=== PATIENT | female | born 1975 | race Caucasian/White ===

== ENCOUNTER 2021-04-13 13:03 | Emergency (ER) | payer BC ==
[~2021-04-13 13:03] MED LIST: ABILIFY 5 MG TAB5 MG GT; K-DUR TAB 20 M20 MEQ GT; LODINE CAP 300300 MG PO; NEURONTIN 300300 MG GT; NORCO 7.5-3251 EACH GT; NORFLEX 100 MG100 MG PO; PHENERGAN 12.12.5 M1 GT; ROPINIROLE HCL1 MG GT; VALIUM 2 MG TAB2 MG GT; VITAMIN D250000 UNIT GT; ZANAFLEX4 MG PO
[2021-04-13 15:18] LABS: HEMOGLOBIN 9.5 gm/dl (12.3-15.3); RED BLOOD COUNT 3.38 M/UL (4.00-5.10); WHITE BLOOD COUNT 6.7 K/UL (4.5-11.0)
[2021-04-13 15:57] LABS: BUN/CREATININE RATIO 25 (0-10)
[2021-04-13] MEDS ORDERED: MACROBID 100 M100 MG PO (17:37)
== END 2021-04-13 18:06 | disposition home or self-care (01) ==
LOC: ER1 13:03
PROVIDERS: Physician Assistant
DX: C71.9 Malignant neoplasm of brain, unspecified (principal); N39.0 Urinary tract infection, site not specified; R93.0 Abnormal findings on diagnostic imaging of skull and head, not elsewhere classified; Z20.822 Contact with and (suspected) exposure to COVID-19
CPT/HCPCS: 70450; 71045; 80053; 81001; 83605; 85025; 87040; 87086; 96374; 96375; 99283; J1885; J2405; J7030; U0002

== ENCOUNTER 2021-06-11 19:23 | Emergency (ER) | payer BC ==
[~2021-06-11 19:23] MED LIST changes: +MACROBID 100 M100 MG PO
[2021-06-11 20:18] LABS: HEMOGLOBIN 10.6 gm/dl (12.3-15.3); RED BLOOD COUNT 3.85 M/UL (4.00-5.10); WHITE BLOOD COUNT 11.3 K/UL (4.5-11.0)
[2021-06-11 20:54] LABS: BUN/CREATININE RATIO 28 (0-10)
== END 2021-06-11 23:30 | disposition short-term general hospital (02) ==
LOC: ER1 19:23
PROVIDERS: Nurse Practitioner
DX: R50.82 Postprocedural fever (principal); F17.200 Nicotine dependence, unspecified, uncomplicated; R41.82 Altered mental status, unspecified; R07.9 Chest pain, unspecified; Z20.822 Contact with and (suspected) exposure to COVID-19; R06.02 Shortness of breath; Z85.841 Personal history of malignant neoplasm of brain
CPT/HCPCS: 70450; 71045; 80053; 82550; 82553; 83605; 83874; 84484; 85025; 85610; 87040; 93005; 96374; 96375; 99285; J2185; J2270; J2405; J3370; J7030; U0002

== ENCOUNTER 2021-07-01 19:20 | Emergency (ER) | payer BC ==
[2021-07-01 20:23] LABS: HEMOGLOBIN 11.9 gm/dl (12.3-15.3); RED BLOOD COUNT 4.32 M/UL (4.00-5.10); WHITE BLOOD COUNT 9.3 K/UL (4.5-11.0)
[2021-07-01 20:42] LABS: BUN/CREATININE RATIO 18 (0-10)
[2021-07-01] MEDS ORDERED: OMNICEF 300 MG300 MG PO (22:02)
[2021-07-01] MEDS ORDERED: DOXYCYCLINE HY100 MG PO (22:02)
== END 2021-07-01 22:50 | disposition home or self-care (01) ==
LOC: ER1 19:20
PROVIDERS: Emergency Medicine
DX: J18.9 Pneumonia, unspecified organism (principal); Z20.822 Contact with and (suspected) exposure to COVID-19; Z88.0 Allergy status to penicillin; Z88.1 Allergy status to other antibiotic agents; Z88.2 Allergy status to sulfonamides
CPT/HCPCS: 70450; 71045; 80053; 81001; 82140; 82550; 82553; 83605; 83690; 83735; 83874; 84100; 84439; 84443; 84484; 85025; 85610; 85730; 87040; 87086; 93005; 96374; 99285; J0696; Q9967; U0002

== ENCOUNTER 2021-07-03 18:21 | Inpatient (IN) | payer BC ==
[~2021-07-03] VITALS: Ht 172.7 cm; Wt 66.2 kg
[~2021-07-03 18:21] MED LIST changes: +DOXYCYCLINE HY100 MG PO; +OMNICEF 300 MG300 MG PO
[2021-07-03 19:22] LABS: HEMOGLOBIN 11.8 gm/dl (12.3-15.3); RED BLOOD COUNT 4.3 M/UL (4.00-5.10); WHITE BLOOD COUNT 9.7 K/UL (4.5-11.0)
[2021-07-03 19:37] LABS: BUN/CREATININE RATIO 17 (0-10)
[2021-07-04] MEDS ORDERED: ZOLOFT100 MG PO (02:45)
[2021-07-04] MEDS ORDERED: SENNA LAX8.6 MG PO (02:45)
[2021-07-04] MEDS ORDERED: PROMETHAZINE HC25 MG PR (02:46)
[2021-07-04] MEDS ORDERED: PHENERGAN 25 MG25 M1 PO (02:46)
[2021-07-04] MEDS ORDERED: TRANSDERM-SCOP1 EACH TOP (02:46)
[2021-07-04] MEDS ORDERED: LEVSIN TAB 00.125 MG SL (02:47)
[2021-07-04] MEDS ORDERED: OXYGEN INH (02:47)
[2021-07-04] MEDS ORDERED: KEPPRA1000 MG PO (02:48)
[2021-07-04] MEDS ORDERED: FENTANYL1 EAC4 TD (02:49)
[2021-07-04] MEDS ORDERED: HYDROCODON-ACE1 EAC6 PO (02:49)
[2021-07-04] MEDS ORDERED: GABAPENTIN800 MG PO (02:49)
[2021-07-04] MEDS ORDERED: DILAUDID1 MG/1 ML PO (02:50)
[2021-07-04] MEDS ORDERED: BISACODYL10 MG PR (02:50)
[2021-07-04] MEDS ORDERED: FEVERALL650 MG PR (02:51)
--- NOTE | 2021-07-04 07:17 | NUR ---
0550 YAMIL THE TECH STATES PT HAS PULLED IV OUT, PULLED ON FEEDING TUBE, PULLED TELLEY AND PULSE OX, EXTERNAL AND DIAPER IS OFF. 2 RNS AND TECH REPOSITON THE PT IN THE BED AND CLEAN UP THE PT AND THE BED. PT IS VERY AGGITATED. CALLED MD GAUTHIER AND NOTIFIED HIM OF ABOVE, STATES TO GO AHEAD AND GIVE VALIUM. WENT TO PT BEDSIDE, PT IS NOT ABLE TO TAKE PO MEDICATIONS, PER DAUGHTER ALSO PT WILL NOT TAKE MEDICATIONS PO. RN CALLED ABRAHAN BACK AND STATES ABOVE, RECEIVED ORDERS FOR HALDOL 3MG IM ONCE, ORDER FOR ABD XRAY STAT. ADMIN HALDOL, XRAY WAS DONE. CALLED TO HAVE SITTER WITH PT UNTIL PT CALMS DOWN. DAUGHTER IS AT BEDSIDE. PT AT THIS TIME HAS NO IV ACCESS, ONCOMING DAY SHIFT NURSE IS MAY AWARE OF ABOVE.
--- NOTE | 2021-07-05 05:25 | NUR ---
07/05/2021 @ 04:55 - Upon doing rounding, this RN and the tech found the patient to be in the floor at the foot of the bed, with the bed alarm sounding, and the bed unlocked. VS- 127/81, 112 pulse, 93%, 21 respirations. Upon assessment pt is found to have a new bruise to the right knee, and a small knot on the right forehead. Pt is complaining of headache, and right quadrant abd pain. Staff assist button is initiated to get help with transferring patient back to bed. MD Mccall is made aware, obtained order for CT of head without contrast, and to monitor abd closely. Daughter at bedside, is aware. supervisor electric motor testing Juma is made aware, at bedside. 1:1 sitter obtained for patient. 07/05/2021 @ 05:15 - Patient returns from CT, new set of yellow gear is applied to patient, sitter at bedside. Will monitor abd.
[2021-07-05 06:45] LABS: HEMOGLOBIN 10.5 gm/dl (12.3-15.3); RED BLOOD COUNT 4.02 M/UL (4.00-5.10)
[2021-07-05 06:49] LABS: WHITE BLOOD COUNT 4.9 K/UL (4.5-11.0)
[2021-07-05 07:23] LABS: BUN/CREATININE RATIO 14 (0-10)
[2021-07-05] MEDS ORDERED: CLEOCIN SU75 MG/5 ML GT (10:59)
[2021-07-05] MEDS ORDERED: PROAIR DIGIHAL90 MCG INH (11:05)
--- NOTE | 2021-07-05 14:12 | NUR ---
CALLED REPORT TO BERNIE ROBERTSPAYROLL ACCOUNTING SPECIALIST RN
== END 2021-07-05 14:35 | DRG 177 ==
LOC: ER1 18:21 → CDU 23:15 → M/S 23:15
PROVIDERS: Internal Medicine; Physician Assistant Medical; ADMIT Internal Medicine
DX: J69.0 Pneumonitis due to inhalation of food and vomit (principal); G93.41 Metabolic encephalopathy; Z20.822 Contact with and (suspected) exposure to COVID-19; J96.01 Acute respiratory failure with hypoxia; G92.8 Other toxic encephalopathy; C71.9 Malignant neoplasm of brain, unspecified; N13.6 Pyonephrosis; W18.30XA Fall on same level, unspecified, initial encounter; M79.7 Fibromyalgia; K59.00 Constipation, unspecified; H54.8 Legal blindness, as defined in USA; L27.0 Generalized skin eruption due to drugs and medicaments taken internally; Z93.1 Gastrostomy status; Z51.5 Encounter for palliative care; Z88.0 Allergy status to penicillin; Z87.01 Personal history of pneumonia (recurrent); Z83.3 Family history of diabetes mellitus; Z88.2 Allergy status to sulfonamides; Z88.8 Allergy status to other drugs, medicaments and biological substances; Z90.49 Acquired absence of other specified parts of digestive tract; Z98.51 Tubal ligation status; Z98.2 Presence of cerebrospinal fluid drainage device
CPT/HCPCS: 70450; 71045; 74018; 80053; 80202; 81001; 83605; 83735; 83880; 84439; 84443; 85025; 87040; 87086; 93005; 96374; 99285; J0696; J1630; J1650; J2543; J3370; J7030; J7050; J7070; Q9967; U0002

== ENCOUNTER 2021-07-11 08:37 | Inpatient (IN) | payer BC ==
[~2021-07-11] VITALS: Ht 175.3 cm; Wt 64.9 kg
[~2021-07-11 08:37] MED LIST changes: +BISACODYL10 MG PR; +CLEOCIN SU75 MG/5 ML GT; +DILAUDID1 MG/1 ML PO; +FENTANYL1 EAC4 TD; +FEVERALL650 MG PR; +HYDROCODON-ACE1 EAC6 PO; +LEVSIN TAB 00.125 MG SL; +OXYGEN INH; +PHENERGAN 25 MG25 M1 PO; +PROAIR DIGIHAL90 MCG INH; +PROMETHAZINE HC25 MG PR; -ROPINIROLE HCL1 MG GT; +SENNA LAX8.6 MG PO; +TRANSDERM-SCOP1 EACH TOP
[2021-07-11 11:02] LABS: HEMOGLOBIN 11.3 gm/dl (12.3-15.3); RED BLOOD COUNT 4.2 M/UL (4.00-5.10); WHITE BLOOD COUNT 9.1 K/UL (4.5-11.0)
[2021-07-11 11:45] LABS: BORDETELLA PARAPERTUSSIS Not Detected (Not Detectd); BORDETELLA PERTUSSIS Not Detected (Not Detectd); CHLAMYDIA PNEUMONIAE Not Detected (Not Detectd); CORONAVIRUS HKU1 Not Detected (Not Detectd); CORONAVIRUS NL63 Not Detected (Not Detectd); CORONAVIRUS OC43 Not Detected (Not Detectd); CORONOAVIRUS 229E Not Detected (Not Detectd); HUMAN METAPNEUMOVIRUS Not Detected (Not Detectd); HUMAN RHINOVIRUS/ENTEROVIRUS Not Detected (Not Detectd); INFLUENZA A Not Detected (Not Detectd); INFLUENZA B Not Detected (Not Detectd); MYCOPLASMA PNEUMONIAE Not Detected (Not Detectd); PARAINFLUENZA VIRUS 1 Not Detected (Not Detectd); PARAINFLUENZA VIRUS 2 Not Detected (Not Detectd); PARAINFLUENZA VIRUS 3 Not Detected (Not Detectd); PARAINFLUENZA VIRUS 4 Not Detected (Not Detectd); RESPIRATORY SYNCYTIAL VIRUS Not Detected (Not Detectd)
[2021-07-11 13:42] LABS: SARS-CoV-2 NOT DETECTED (Not Detectd)
[2021-07-12 09:31] LABS: HEMOGLOBIN 9.8 gm/dl (12.3-15.3); RED BLOOD COUNT 3.69 M/UL (4.00-5.10); WHITE BLOOD COUNT 3.7 K/UL (4.5-11.0)
[2021-07-12 09:59] LABS: BUN/CREATININE RATIO 17 (0-10)
[2021-07-13 07:38] LABS: HEMOGLOBIN 8.4 gm/dl (12.3-15.3); WHITE BLOOD COUNT 3.3 K/UL (4.5-11.0)
[2021-07-13 07:40] LABS: RED BLOOD COUNT 3.18 M/UL (4.00-5.10)
[2021-07-13 08:13] LABS: BUN/CREATININE RATIO 10 (0-10)
[2021-07-14] MEDS ORDERED: ZOLOFT100 MG PO (02:45)
[2021-07-14] MEDS ORDERED: KEPPRA1000 MG PO (02:48)
[2021-07-14] MEDS ORDERED: GABAPENTIN800 MG PO (02:49)
[2021-07-14 11:26] LABS: HEMOGLOBIN 8.7 gm/dl (12.3-15.3); RED BLOOD COUNT 3.3 M/UL (4.00-5.10)
[2021-07-14 11:30] LABS: WHITE BLOOD COUNT 4.9 K/UL (4.5-11.0)
[2021-07-14 11:36] LABS: BUN/CREATININE RATIO 10 (0-10)
[2021-07-14 15:02] LABS: RBC (AUTOMATED) 1600 10^6 (0); WBC (AUTOMATED 31 10^3 (0-5)
[2021-07-14 15:20] LABS: GLUCOSE,CSF 51 mg/dL (50-80); TOTAL PROTEIN,CSF 168 mg/dL (20-45)
[2021-07-14] MEDS ORDERED: FENTANYL1 EAC3 TD (15:30)
[2021-07-14] MEDS ORDERED: ABILIFY5 MG PO (15:39)
[2021-07-14] MEDS ORDERED: TIZANIDINE HCL4 MG PO (15:41)
[2021-07-14] MEDS ORDERED: ROPINIROLE HCL1 MG GT (23:49)
[2021-07-15 05:23] LABS: BUN/CREATININE RATIO 8 (0-10)
[2021-07-15 05:36] LABS: HEMOGLOBIN 8.9 gm/dl (12.3-15.3); RED BLOOD COUNT 3.42 M/UL (4.00-5.10); WHITE BLOOD COUNT 4.2 K/UL (4.5-11.0)
[2021-07-15 12:01] LABS: CRYPTOCOCCUS NEOFORMANS/GATTII Not Detected (Negative); CYTOMEGALOVIRUS Not Detected (Negative); ENTEROVIRUS Not Detected (Negative); ESCHERICHIA COLI K1 Not Detected (Negative); HAEMOPHILUS INFLUENZAE Not Detected (Negative); HERPES SIMPLEX VIRUS 1 Not Detected (Negative); HERPES SIMPLEX VIRUS 2 Not Detected (Negative); HUMAN HERPESVIRUS 6 Not Detected (Negative); HUMAN PARECHOVIRUS Not Detected (Negative); LISTERIA MONOCYTOGENES Not Detected (Negative); NEISERRIA MENINGITIDIS Not Detected (Negative); STREPTOCOCCUS AGALACTIAE Not Detected (Negative); STREPTOCOCCUS PNEUMONIAE Not Detected (Negative); VARICELLA ZOSTER VIRUS Not Detected (Negative)
[2021-07-16 08:30] LABS: HEMOGLOBIN 9.6 gm/dl (12.3-15.3); RED BLOOD COUNT 3.63 M/UL (4.00-5.10)
[2021-07-16 08:50] LABS: BUN/CREATININE RATIO 10 (0-10)
[2021-07-16] MEDS ORDERED: PHENERGAN 25 MG25 M1 PO (08:55)
[2021-07-17 04:33] LABS: HEMOGLOBIN 9.2 gm/dl (12.3-15.3); RED BLOOD COUNT 3.49 M/UL (4.00-5.10)
[2021-07-17 05:19] LABS: BUN/CREATININE RATIO 16 (0-10)
--- NOTE | 2021-07-17 10:15 | NUR ---
FENTANYL PATCH 100 MG WAS WASTED AFTER MED DC'D ON 07/17/21 AT 1015 AM BY DEMETRIO DRAPER RN AND TRACY LOYOLA RN.
[2021-07-18 03:52] LABS: HEMOGLOBIN 10.3 gm/dl (12.3-15.3); WHITE BLOOD COUNT 5.8 K/UL (4.5-11.0)
[2021-07-18 04:03] LABS: RED BLOOD COUNT 3.9 M/UL (4.00-5.10)
[2021-07-18 04:33] LABS: BUN/CREATININE RATIO 21 (0-10)
[2021-07-19 06:14] LABS: HEMOGLOBIN 10.3 gm/dl (12.3-15.3); RED BLOOD COUNT 3.89 M/UL (4.00-5.10)
[2021-07-19 06:32] LABS: BUN/CREATININE RATIO 18 (0-10)
[2021-07-20 07:08] LABS: HEMOGLOBIN 10.4 gm/dl (12.3-15.3); RED BLOOD COUNT 3.94 M/UL (4.00-5.10); WHITE BLOOD COUNT 7.8 K/UL (4.5-11.0)
[2021-07-20 07:31] LABS: BUN/CREATININE RATIO 18 (0-10)
[2021-07-20] MEDS ORDERED: ZOFRAN4 MG PO (12:23)
[2021-07-20] MEDS ORDERED: QUETIAPINE FUMA25 MG PO (12:23)
[2021-07-20] MEDS ORDERED: PROTONIX40 MG PO (12:26)
[2021-07-20] MEDS ORDERED: DOXYCYCLINE HY100 MG PO (12:26)
== END 2021-07-20 15:20 | DRG 871 ==
LOC: ER1 08:37 → CCU 11:36 → CDU 11:36 → CCU 17:53 → PROG CARE 07-16 18:46 → MED SURG 4 07-18 13:21
PROVIDERS: Emergency Medicine; Internal Medicine; Internal Medicine Pulmonary Disease; ADMIT Internal Medicine
PROC: 5A09457 Assistance with Respiratory Ventilation, 24-96 Consecutive Hours, Continuous Positive Airway Pressure (ICD-10-PCS; principal; 2021-07-11)
PROC: 0DH63UZ Insertion of Feeding Device into Stomach, Percutaneous Approach (ICD-10-PCS; 2021-07-11)
PROC: 3E0G76Z Introduction of Nutritional Substance into Upper GI, Via Natural or Artificial Opening (ICD-10-PCS; 2021-07-11)
DX: A41.9 Sepsis, unspecified organism (principal); J18.9 Pneumonia, unspecified organism; R65.21 Severe sepsis with septic shock; Z20.822 Contact with and (suspected) exposure to COVID-19; J96.21 Acute and chronic respiratory failure with hypoxia; J69.0 Pneumonitis due to inhalation of food and vomit; J96.22 Acute and chronic respiratory failure with hypercapnia; G92.8 Other toxic encephalopathy; E87.0 Hyperosmolality and hypernatremia; A87.9 Viral meningitis, unspecified; R74.01 Elevation of levels of liver transaminase levels; G40.909 Epilepsy, unspecified, not intractable, without status epilepticus; E87.5 Hyperkalemia; R53.81 Other malaise; R13.10 Dysphagia, unspecified; Z93.1 Gastrostomy status; D63.8 Anemia in other chronic diseases classified elsewhere; Z98.51 Tubal ligation status; Z88.0 Allergy status to penicillin; Z88.8 Allergy status to other drugs, medicaments and biological substances; Z88.5 Allergy status to narcotic agent; Z80.1 Family history of malignant neoplasm of trachea, bronchus and lung; Z85.89 Personal history of malignant neoplasm of other organs and systems; Z74.01 Bed confinement status; Z98.2 Presence of cerebrospinal fluid drainage device
CPT/HCPCS: 36415; 36600; 70450; 71045; 80048; 80053; 80202; 81001; 82140; 82550; 82553; 82803; 82945; 83540; 83550; 83605; 83735; 83874; 84100; 84157; 84484; 85025; 85610; 85652; 86140; 87040; 87252; 87483; 87633; 89051; 93005; 94660; 94760; 99285; C9113; J0133; J1200; J1650; J2060; J2185; J2310; J2405; J2765; J3370; J7030; J7070

== ENCOUNTER 2021-09-21 12:04 | Inpatient (IN) | payer BC ==
[~2021-09-21] VITALS: Ht 172.7 cm; Wt 101.0 kg
[~2021-09-21 12:04] MED LIST changes: +ABILIFY5 MG PO; +FENTANYL1 EAC3 TD; +GABAPENTIN400 MG PO; +KEPPRA1000 MG PO; +PROTONIX40 MG PO; +QUETIAPINE FUMA25 MG PO; +ROPINIROLE HCL1 MG PO; +TIZANIDINE HCL4 MG PO; +ZOFRAN4 MG PO; +ZOLOFT100 MG PO
[2021-09-21 13:21] LABS: RED BLOOD COUNT 3.53 M/UL (4.00-5.10); WHITE BLOOD COUNT 7.7 K/UL (4.5-11.0)
[2021-09-21 13:50] LABS: BUN/CREATININE RATIO 15 (0-10)
[2021-09-21] MEDS ORDERED: DIAZEPAM5 MG PO (16:38)
[2021-09-21] MEDS ORDERED: FENTANYL1 EAC3 TD (16:39)
[2021-09-21] MEDS ORDERED: AMITRIPTYLINE H50 MG PO (16:45)
[2021-09-21] MEDS ORDERED: DEXAMETHASONE2 MG PO (17:39)
[2021-09-21] MEDS ORDERED: CIPRO250 MG PO (17:39)
[2021-09-21] MEDS ORDERED: COMPAZINE 10MG10 MG PO (17:40)
[2021-09-21] MEDS ORDERED: PHENERGAN 25 MG25 M1 PO (17:40)
[2021-09-22 04:16] LABS: HEMOGLOBIN 8.6 gm/dl (12.3-15.3); RED BLOOD COUNT 3.44 M/UL (4.00-5.10); WHITE BLOOD COUNT 7.5 K/UL (4.5-11.0)
[2021-09-22 04:36] LABS: BUN/CREATININE RATIO 18 (0-10)
[2021-09-22] MEDS ORDERED: HYDROCODON-ACE1 EAC6 PO (16:43)
[2021-09-22] MEDS ORDERED: DRAMAMINE LESS25 MG PO (17:38)
[2021-09-23 04:34] LABS: HEMOGLOBIN 8.7 gm/dl (12.3-15.3); RED BLOOD COUNT 3.48 M/UL (4.00-5.10); WHITE BLOOD COUNT 7.4 K/UL (4.5-11.0)
[2021-09-23 04:59] LABS: BUN/CREATININE RATIO 21 (0-10)
--- NOTE | 2021-09-24 00:27 | NUR ---
PATIENT WAS DISCOVERD ON THE FLOOR ON HER KNEES. THE FAMILY CALLED OUT TO LET US KNOW SHE HAD FALLEN. THE PATIENT WAS ATTEMPTING TO GO TO THE BEDSIDE [facility] WITHOUT ASSISTANCE AND FELL. VITALS READ 145/90 BP, 99HR, 16RR, 98 O2 98 TEMP. NO SIGNS OF INJURY NOTED AFTER PERFORMING A HEAD TO TOE ASSESMENT. NOTIFIED PHYCICAN AND WATER RIGHTS SPECIALIST.
[2021-09-24 05:38] LABS: BUN/CREATININE RATIO 24 (0-10)
[2021-09-24] MEDS ORDERED: LEVOFLOXACIN500 MG PO (15:36)
--- NOTE | 2021-09-24 18:23 | NUR ---
CALLED [facility] AT AND LEFT VOICEMAIL MAKING THEM AWARE THAT PATIENT IS BEING DISCHARGED AT THIS TIME.
== END 2021-09-24 18:26 | DRG 179 ==
LOC: ER1 12:04 → MED SURG 4 15:33 → CDU 15:33 → MED SURG 4 17:11
PROVIDERS: Emergency Medicine; Physician Assistant; ADMIT Internal Medicine
DX: J69.0 Pneumonitis due to inhalation of food and vomit (principal); D64.9 Anemia, unspecified; Z20.822 Contact with and (suspected) exposure to COVID-19; G40.909 Epilepsy, unspecified, not intractable, without status epilepticus; R13.10 Dysphagia, unspecified; H54.8 Legal blindness, as defined in USA; Z92.3 Personal history of irradiation; Z93.1 Gastrostomy status; Z98.51 Tubal ligation status; Z98.890 Other specified postprocedural states; Z88.0 Allergy status to penicillin; Z88.8 Allergy status to other drugs, medicaments and biological substances; Z88.5 Allergy status to narcotic agent; Z85.841 Personal history of malignant neoplasm of brain; Z79.899 Other long term (current) drug therapy
CPT/HCPCS: 0240U; 36415; 70450; 71045; 73560; 80048; 80053; 80202; 81001; 82550; 82553; 83605; 83874; 84484; 84703; 85025; 87040; 92526; 92610; 93005; 96365; 96366; 96375; 99285; J0692; J3370; J7030; J7070

== ENCOUNTER 2021-09-28 17:03 | Inpatient (IN) | payer BC ==
[~2021-09-28] VITALS: Ht 172.7 cm; Wt 90.7 kg
[~2021-09-28 17:03] MED LIST changes: +AMITRIPTYLINE H50 MG PO; +CIPRO250 MG PO; +COMPAZINE 10MG10 MG PO; +DEXAMETHASONE2 MG PO; +DIAZEPAM5 MG PO; +DRAMAMINE LESS25 MG PO; -GABAPENTIN400 MG PO; +GABAPENTIN800 MG PO; +LEVOFLOXACIN500 MG PO
[2021-09-28 17:56] LABS: HEMOGLOBIN 9.2 gm/dl (12.3-15.3); RED BLOOD COUNT 3.66 M/UL (4.00-5.10); WHITE BLOOD COUNT 15.3 K/UL (4.5-11.0)
[2021-09-28 18:22] LABS: BUN/CREATININE RATIO 28 (0-10)
[2021-09-29 02:27] LABS: HEMOGLOBIN 8.8 gm/dl (12.3-15.3); RED BLOOD COUNT 3.52 M/UL (4.00-5.10); WHITE BLOOD COUNT 11.4 K/UL (4.5-11.0)
[2021-09-29 03:24] LABS: BUN/CREATININE RATIO 18 (0-10)
[2021-09-29] MEDS ORDERED: CIPROFLOXACIN250 MG PO (10:53)
[2021-09-30 05:57] LABS: HEMOGLOBIN 8.8 gm/dl (12.3-15.3); RED BLOOD COUNT 3.51 M/UL (4.00-5.10)
[2021-09-30 05:58] LABS: WHITE BLOOD COUNT 7.3 K/UL (4.5-11.0)
[2021-09-30 06:58] LABS: BUN/CREATININE RATIO 19 (0-10)
[2021-10-01] MEDS ORDERED: KEPPRA1000 MG PO (17:54)
[2021-10-01] MEDS ORDERED: FENTANYL1 EAC3 TD (17:54)
[2021-10-01] MEDS ORDERED: HYDROCODON-ACE1 EAC6 PO (17:54)
--- NOTE | 2021-10-01 22:01 | NUR ---
APPROX 21:00 - Patient states that he has ice cream for patient, is insistent on the patient eating ice cream he brought from home. Staff explains the risks of giving the pt po food. Patient is still persistent about her having food. Staff checks on patient when she is heard coughing from the hallway. Staff explains the risks once again of ingesting food po. Patient refuses for patient to stop eating. Will monitor.
[2021-10-02 04:18] LABS: BUN/CREATININE RATIO 25 (0-10)
== END 2021-10-02 12:17 | disposition home health service (06) | DRG 871 ==
LOC: ER1 17:03 → MED SURG 4 22:00 → CDU 22:00 → MED SURG 4 23:36
PROVIDERS: Nurse Practitioner; Physician Assistant; ADMIT Internal Medicine
PROC: 3E04329 Introduction of Other Anti-infective into Central Vein, Percutaneous Approach (ICD-10-PCS; principal; 2021-09-28)
PROC: 3E0G76Z Introduction of Nutritional Substance into Upper GI, Via Natural or Artificial Opening (ICD-10-PCS; 2021-10-01)
PROC: 0DH63UZ Insertion of Feeding Device into Stomach, Percutaneous Approach (ICD-10-PCS; 2021-10-01)
DX: A41.9 Sepsis, unspecified organism (principal); J96.01 Acute respiratory failure with hypoxia; J69.0 Pneumonitis due to inhalation of food and vomit; F11.20 Opioid dependence, uncomplicated; Z20.822 Contact with and (suspected) exposure to COVID-19; G40.909 Epilepsy, unspecified, not intractable, without status epilepticus; H54.8 Legal blindness, as defined in USA; R13.10 Dysphagia, unspecified; G89.4 Chronic pain syndrome; D63.8 Anemia in other chronic diseases classified elsewhere; R65.20 Severe sepsis without septic shock; K59.00 Constipation, unspecified; Z98.51 Tubal ligation status; Z93.1 Gastrostomy status; Z98.890 Other specified postprocedural states; Z88.0 Allergy status to penicillin; Z88.5 Allergy status to narcotic agent; Z88.8 Allergy status to other drugs, medicaments and biological substances; Z79.899 Other long term (current) drug therapy; Z87.440 Personal history of urinary (tract) infections
CPT/HCPCS: 0240U; 36415; 36600; 71045; 74230; 80048; 80053; 80202; 81001; 82550; 82553; 82803; 83605; 83874; 84484; 85025; 87040; 92611-GN; 93005; 96365; 96366; 96368; 96374; 99285; J1650; J2185; J2405; J3370; J7030; J7070; Q9967

== ENCOUNTER 2021-10-05 13:20 | Observation (INO) | payer BC ==
[~2021-10-05] VITALS: Ht 175.3 cm; Wt 90.8 kg
[~2021-10-05 13:20] MED LIST changes: +CIPROFLOXACIN250 MG PO
[2021-10-05 14:23] LABS: HEMOGLOBIN 9.9 gm/dl (12.3-15.3); RED BLOOD COUNT 3.96 M/UL (4.00-5.10); WHITE BLOOD COUNT 7.2 K/UL (4.5-11.0)
[2021-10-05 14:50] LABS: BUN/CREATININE RATIO 31 (0-10)
--- NOTE | 2021-10-06 00:15 | NUR ---
FOUND PATIENT EATING ICE CREAM IN ROOM. EDUCATED THE PATIENT AND DAUGHTER ABOUT NPO STATUS. PATIENT AND DAUGHTER VERBALIZED UNDERSTANDING. THERE ARE NO ORDERS FOR ME TO START TUBE FEEDS. THE DAUGHTER STATED THAT SHE HAD BEEN GIVING THE PATIENT BOLUSES. WILL PASS THIS INFORMATION ALONG TO DAYSHIFT.
[2021-10-06 03:16] LABS: HEMOGLOBIN 9.4 gm/dl (12.3-15.3); RED BLOOD COUNT 3.77 M/UL (4.00-5.10); WHITE BLOOD COUNT 7.8 K/UL (4.5-11.0)
[2021-10-06 03:27] LABS: BUN/CREATININE RATIO 31 (0-10)
[2021-10-07] MEDS ORDERED: LEVOFLOXACIN500 MG PO (10:12)
--- NOTE | 2021-10-07 11:07 | NUR ---
PATIENT ROOM AIR SAT 86%.
--- NOTE | 2021-10-07 12:39 | NUR ---
patient refused home health
== END 2021-10-07 14:16 | disposition home or self-care (01) ==
LOC: ER1 13:20 → CDU 15:36 → M/S 15:36
PROVIDERS: Emergency Medicine; ADMIT Internal Medicine
DX: J69.0 Pneumonitis due to inhalation of food and vomit (principal); J96.21 Acute and chronic respiratory failure with hypoxia; R13.10 Dysphagia, unspecified; C71.9 Malignant neoplasm of brain, unspecified; D64.9 Anemia, unspecified; G40.909 Epilepsy, unspecified, not intractable, without status epilepticus; H54.7 Unspecified visual loss; G89.4 Chronic pain syndrome; I95.9 Hypotension, unspecified; Z79.899 Other long term (current) drug therapy; Z85.841 Personal history of malignant neoplasm of brain; Z88.0 Allergy status to penicillin; Z88.1 Allergy status to other antibiotic agents; Z88.5 Allergy status to narcotic agent; Z88.8 Allergy status to other drugs, medicaments and biological substances; Z93.1 Gastrostomy status
CPT/HCPCS: 0240U; 36415; 36600; 71045; 80048; 80053; 81001; 82550; 82553; 82803; 83605; 83880; 84484; 85025; 87040; 93005; 94640; 94664; 94760; 96365; 96376; 99285; G0378; J2185; J7040

== ENCOUNTER 2021-10-26 15:43 | Inpatient (IN) | payer BC ==
[~2021-10-26] VITALS: Ht 172.7 cm; Wt 89.9 kg
[~2021-10-26 15:43] MED LIST changes: -DIAZEPAM5 MG PO
[2021-10-26 17:38] LABS: HEMOGLOBIN 10.3 gm/dl (12.3-15.3); RED BLOOD COUNT 4.03 M/UL (4.00-5.10); WHITE BLOOD COUNT 4.9 K/UL (4.5-11.0)
[2021-10-26 17:55] LABS: BUN/CREATININE RATIO 19 (0-10)
[2021-10-27 06:14] LABS: HEMOGLOBIN 10.6 gm/dl (12.3-15.3); RED BLOOD COUNT 4.16 M/UL (4.00-5.10); WHITE BLOOD COUNT 5.4 K/UL (4.5-11.0)
[2021-10-27 07:08] LABS: BUN/CREATININE RATIO 13 (0-10)
[2021-10-27] MEDS ORDERED: KEPPRA500 MG PO (13:13)
[2021-10-27] MEDS ORDERED: DIAZEPAM5 MG PO (16:38)
[2021-10-27] MEDS ORDERED: ROXICODONE5 MG PO (23:17)
[2021-10-28 04:53] LABS: BUN/CREATININE RATIO 13 (0-10)
[2021-10-29 15:55] LABS: HEMOGLOBIN 10.3 gm/dl (12.3-15.3); RED BLOOD COUNT 4.04 M/UL (4.00-5.10)
[2021-10-29 16:40] LABS: BUN/CREATININE RATIO 16 (0-10)
[2021-10-30 05:18] LABS: BUN/CREATININE RATIO 21 (0-10)
--- NOTE | 2021-10-30 11:53 | NUR ---
PATIENT UNABLE OT VOID THIS FAR IN THE SHIFT. PROVIDER MADE AWARE. NEW ORDERS GIVEN FOR A PLAZA.
[2021-10-31 06:30] LABS: HEMOGLOBIN 10.2 gm/dl (12.3-15.3); RED BLOOD COUNT 3.96 M/UL (4.00-5.10); WHITE BLOOD COUNT 5.4 K/UL (4.5-11.0)
[2021-11-01 05:46] LABS: HEMOGLOBIN 10.3 gm/dl (12.3-15.3); RED BLOOD COUNT 4.03 M/UL (4.00-5.10); WHITE BLOOD COUNT 5.3 K/UL (4.5-11.0)
[2021-11-01 06:24] LABS: BUN/CREATININE RATIO 21 (0-10)
[2021-11-01] MEDS ORDERED: GABAPENTIN100 MG PO (10:07)
[2021-11-01] MEDS ORDERED: LEVOFLOXACIN750 MG PO (10:07)
[2021-11-01] MEDS ORDERED: VALIUM 2 MG TAB2 MG PO ×2 (10:07)
[2021-11-02 04:43] LABS: HEMOGLOBIN 9.9 gm/dl (12.3-15.3); RED BLOOD COUNT 3.86 M/UL (4.00-5.10); WHITE BLOOD COUNT 4.9 K/UL (4.5-11.0)
[2021-11-02 05:12] LABS: BUN/CREATININE RATIO 26 (0-10)
== END 2021-11-02 17:58 | disposition home or self-care (01) | DRG 177 ==
LOC: ER1 15:43 → PROG CARE 21:27 → CDU 21:27 → MED SURG 4 21:27 → PROG CARE 22:58 → MED SURG 4 10-28 15:53
PROVIDERS: Internal Medicine; Nurse Practitioner; ADMIT Internal Medicine
DX: J69.0 Pneumonitis due to inhalation of food and vomit (principal); R53.2 Functional quadriplegia; G92.8 Other toxic encephalopathy; J96.12 Chronic respiratory failure with hypercapnia; N39.0 Urinary tract infection, site not specified; J98.11 Atelectasis; Z20.822 Contact with and (suspected) exposure to COVID-19; F41.8 Other specified anxiety disorders; J38.00 Paralysis of vocal cords and larynx, unspecified; D64.9 Anemia, unspecified; G47.33 Obstructive sleep apnea (adult) (pediatric); H54.7 Unspecified visual loss; M79.7 Fibromyalgia; H70.92 Unspecified mastoiditis, left ear; G89.4 Chronic pain syndrome; R53.81 Other malaise; R33.9 Retention of urine, unspecified; G40.909 Epilepsy, unspecified, not intractable, without status epilepticus; Z93.1 Gastrostomy status; Z98.890 Other specified postprocedural states; Z98.51 Tubal ligation status; Z79.899 Other long term (current) drug therapy; Z88.0 Allergy status to penicillin; Z88.5 Allergy status to narcotic agent; Z88.8 Allergy status to other drugs, medicaments and biological substances; F32.A Depression, unspecified; F41.9 Anxiety disorder, unspecified
CPT/HCPCS: 0240U; 36415; 36600; 70450; 70486; 71045; 71250; 74018; 80048; 80053; 80076; 80202; 81001; 82140; 82150; 82550; 82553; 82607; 82746; 82803; 83605; 83690; 83735; 83880; 84100; 84439; 84443; 84484; 85025; 85652; 86140; 87040; 87086; 93005; 94760; 96374; 97110-GP-CQ; 97116-GP-CQ; 97162; 97166; 97530-GP-CQ; 99285; C9113; J0696; J1650; J1956; J2185; J3370; J7070

== ENCOUNTER 2021-11-10 15:47 | Emergency (ER) | payer BC ==
[~2021-11-10 15:47] MED LIST changes: +DIAZEPAM5 MG PO; +GABAPENTIN100 MG PO; +KEPPRA500 MG PO; +LEVOFLOXACIN750 MG PO; +ROXICODONE5 MG PO; +VALIUM 2 MG TAB2 MG PO
[2021-11-10 20:44] LABS: RED BLOOD COUNT 3.46 M/UL (4.00-5.10); WHITE BLOOD COUNT 3.8 K/UL (4.5-11.0)
[2021-11-10 21:00] LABS: BUN/CREATININE RATIO 17 (0-10)
== END 2021-11-11 02:40 | disposition home or self-care (01) ==
LOC: ER1 15:47
PROVIDERS: Physician Assistant Medical
DX: R41.82 Altered mental status, unspecified (principal); C71.9 Malignant neoplasm of brain, unspecified; D72.819 Decreased white blood cell count, unspecified; J98.11 Atelectasis; D64.9 Anemia, unspecified; Z99.81 Dependence on supplemental oxygen; Z88.0 Allergy status to penicillin; Z86.011 Personal history of benign neoplasm of the brain
CPT/HCPCS: 70450; 71045; 71250; 80053; 81001; 82550; 82553; 83605; 84484; 85025; 87040; 99284

== ENCOUNTER 2021-11-15 10:56 | Inpatient (IN) | payer BC ==
[~2021-11-15] VITALS: Ht 172.7 cm; Wt 100.2 kg
[~2021-11-15 10:56] MED LIST changes: +ROPINIROLE HCL1 MG PEG; -ROPINIROLE HCL1 MG PO
[2021-11-15 11:50] LABS: HEMOGLOBIN 9.4 gm/dl (12.3-15.3); RED BLOOD COUNT 3.71 M/UL (4.00-5.10); WHITE BLOOD COUNT 11.2 K/UL (4.5-11.0)
[2021-11-15 12:23] LABS: BUN/CREATININE RATIO 21 (0-10)
[2021-11-15] MEDS ORDERED: PROCHLORPERAZIN10 MG PO (14:44)
[2021-11-15] MEDS ORDERED: AMITRIPTYLINE H50 MG PO (14:45)
[2021-11-15] MEDS ORDERED: LEVOFLOXACIN500 MG PO (14:46)
[2021-11-15] MEDS ORDERED: OXYCODONE HCL20 MG PO ×2 (14:47→14:48)
[2021-11-15] MEDS ORDERED: LEVETIRACE500 MG/51 PO (14:48)
[2021-11-16 02:40] LABS: HEMOGLOBIN 8.2 gm/dl (12.3-15.3)
[2021-11-16 02:42] LABS: RED BLOOD COUNT 3.15 M/UL (4.00-5.10); WHITE BLOOD COUNT 7.2 K/UL (4.5-11.0)
[2021-11-16 03:09] LABS: BUN/CREATININE RATIO 20 (0-10)
[2021-11-16 18:57] LABS: CANDIDA ALBICANS Not Detected (Negative); CANDIDA KRUSEI Not Detected (Negative); CANDIDA TROPICALIS Not Detected (Negative); ESCHERICHIA COLI Not Detected (Negative); HAEMOPHILUS INFLUENZAE Not Detected (Negative); KLEBSIELLA OXYTOCA Not Detected (Negative); KLEBSIELLA PNEUMONIAE Not Detected (Negative); KPC-CARBAPENEM-RESISTANCE GENE Not Detected (Negative); PROTEUS Not Detected (Negative); PSEUDOMONAS AERUGINOSA Not Detected (Negative); SERRATIA MARCESANS Not Detected (Negative); STAPHYLOCOCCUS AUREUS Not Detected (Negative); STREP AGALACTIAE (GROUP B) Not Detected (Negative); STREP PYOGENES (GROUP A) Not Detected (Negative); STREPTOCOCCUS Not Detected (Negative); vanA/B (VANCOMYCIN RESIST GENE Not Detected (Negative)
[2021-11-16 20:07] LABS: STAPHYLOCOCCUS DETECTED (Negative)
[2021-11-17 02:35] LABS: HEMOGLOBIN 8.8 gm/dl (12.3-15.3); RED BLOOD COUNT 3.47 M/UL (4.00-5.10); WHITE BLOOD COUNT 5.3 K/UL (4.5-11.0)
[2021-11-17 03:18] LABS: BUN/CREATININE RATIO 15 (0-10)
[2021-11-18 02:09] LABS: RED BLOOD COUNT 3.54 M/UL (4.00-5.10); WHITE BLOOD COUNT 5.5 K/UL (4.5-11.0)
[2021-11-18 02:29] LABS: BUN/CREATININE RATIO 14 (0-10)
[2021-11-19 05:10] LABS: BUN/CREATININE RATIO 17 (0-10)
[2021-11-20 01:56] LABS: HEMOGLOBIN 8.5 gm/dl (12.3-15.3); RED BLOOD COUNT 3.4 M/UL (4.00-5.10); WHITE BLOOD COUNT 5.5 K/UL (4.5-11.0)
[2021-11-20 02:22] LABS: BUN/CREATININE RATIO 17 (0-10)
[2021-11-20] MEDS ORDERED: MIDODRINE HCL2.5 MG PEG (13:00)
[2021-11-20] MEDS ORDERED: ROXICODONE TAB 55 MG GT (13:00)
[2021-11-20] MEDS ORDERED: SERTRALINE HCL50 MG PEG (13:00)
[2021-11-20] MEDS ORDERED: DEPAKENE S250 MG/5 M PEG (13:00)
[2021-11-20] MEDS ORDERED: KEPPRA750 MG PEG (13:00)
[2021-11-20] MEDS ORDERED: FERROUS SU300 MG/5 M GT (13:19)
[2021-11-20] MEDS ORDERED: MULTIVITAM9 MG/15 ML PEG (13:19)
[2021-11-20] MEDS ORDERED: FERROUS SULFAT325 M2 PEG (15:04)
[2021-11-20] MEDS ORDERED: THERAGRAN M TAB1 EA PEG (15:04)
[2021-11-20] MEDS ORDERED: DEPAKOTE SPRIN125 MG PO (15:04)
== END 2021-11-20 15:11 | disposition home or self-care (01) | DRG 91 ==
LOC: ER1 10:56 → PROG CARE 13:57 → CDU 13:57 → PROG CARE 16:37
PROVIDERS: Internal Medicine Infectious Disease; Physician Assistant; ADMIT Internal Medicine
PROC: 3E043XZ Introduction of Vasopressor into Central Vein, Percutaneous Approach (ICD-10-PCS; principal; 2021-11-15)
PROC: 5A09357 Assistance with Respiratory Ventilation, Less than 24 Consecutive Hours, Continuous Positive Airway Pressure (ICD-10-PCS; 2021-11-15)
PROC: 5A09357 Assistance with Respiratory Ventilation, Less than 24 Consecutive Hours, Continuous Positive Airway Pressure (ICD-10-PCS; 2021-11-17)
PROC: 5A09357 Assistance with Respiratory Ventilation, Less than 24 Consecutive Hours, Continuous Positive Airway Pressure (ICD-10-PCS; 2021-11-19)
DX: G92.9 Unspecified toxic encephalopathy (principal); J96.21 Acute and chronic respiratory failure with hypoxia; J96.22 Acute and chronic respiratory failure with hypercapnia; C41.0 Malignant neoplasm of bones of skull and face; J98.11 Atelectasis; E87.3 Alkalosis; Z20.822 Contact with and (suspected) exposure to COVID-19; Z20.828 Contact with and (suspected) exposure to other viral communicable diseases; I95.2 Hypotension due to drugs; G90.9 Disorder of the autonomic nervous system, unspecified; D50.9 Iron deficiency anemia, unspecified; G40.909 Epilepsy, unspecified, not intractable, without status epilepticus; R13.10 Dysphagia, unspecified; G89.4 Chronic pain syndrome; R51.9 Headache, unspecified; M79.7 Fibromyalgia; F41.9 Anxiety disorder, unspecified; T40.2X5A Adverse effect of other opioids, initial encounter; T42.4X5A Adverse effect of benzodiazepines, initial encounter; H54.8 Legal blindness, as defined in USA; Z87.01 Personal history of pneumonia (recurrent); Z93.1 Gastrostomy status; Z99.81 Dependence on supplemental oxygen; Z88.6 Allergy status to analgesic agent; Z88.1 Allergy status to other antibiotic agents; Z88.0 Allergy status to penicillin; Z88.8 Allergy status to other drugs, medicaments and biological substances; Z98.51 Tubal ligation status
CPT/HCPCS: 0240U; 36415; 36600; 70450; 71045; 80048; 80053; 80202; 81001; 82550; 82553; 82803; 83605; 84484; 85025; 85652; 86140; 87040; 87070; 87077; 87086; 87150; 87186; 87205; 93005; 94640; 94660; 94664; 94760; 99285; J0692; J1885; J2550; J3370; J7070

== ENCOUNTER 2021-12-18 21:49 | Inpatient (IN) | payer BC ==
[~2021-12-18] VITALS: Ht 172.7 cm; Wt 86.2 kg
[~2021-12-18 21:49] MED LIST changes: +AMITRIPTYLINE H10 MG PO; +DEPAKENE S250 MG/5 M PEG; +DEPAKOTE SPRIN125 MG PO; +FERROUS SU300 MG/5 M GT; +FERROUS SULFAT325 M2 PEG; +KEPPRA750 MG PEG; +LEVETIRACE500 MG/51 PO; +MIDODRINE HCL2.5 MG PEG; +MULTIVITAM9 MG/15 ML PEG; +OXYCODONE HCL20 MG PO; +PROCHLORPERAZIN10 MG PO; +ROXICODONE TAB 55 MG GT; +SERTRALINE HCL50 MG PEG; +THERAGRAN M TAB1 EA PEG
[2021-12-18 22:43] LABS: HEMOGLOBIN 9.4 gm/dl (12.3-15.3); RED BLOOD COUNT 3.73 M/UL (4.00-5.10); WHITE BLOOD COUNT 4.9 K/UL (4.5-11.0)
[2021-12-18 23:34] LABS: BUN/CREATININE RATIO 26 (0-10)
[2021-12-19] MEDS ORDERED: DIAZEPAM2 MG PO (10:59)
[2021-12-19] MEDS ORDERED: OXYCODONE HCL20 MG PO (11:02)
[2021-12-19] MEDS ORDERED: ZOFRAN ODT 4 MG4 MG PO (11:02)
[2021-12-19] MEDS ORDERED: SERTRALINE HCL100 MG PO (11:02)
[2021-12-19] MEDS ORDERED: GABAPENTIN800 MG PO (11:03)
[2021-12-19] MEDS ORDERED: IPRAT-ALBUT 0.5-3 ML INH (11:03)
[2021-12-19] MEDS ORDERED: TYLENOL EXTRA500 MG PO (11:04)
[2021-12-19] MEDS ORDERED: LEVETIRACETAM750 MG PO (11:06)
[2021-12-20 02:49] LABS: HEMOGLOBIN 8.7 gm/dl (12.3-15.3); RED BLOOD COUNT 3.43 M/UL (4.00-5.10); WHITE BLOOD COUNT 4.4 K/UL (4.5-11.0)
[2021-12-20 03:04] LABS: BUN/CREATININE RATIO 22 (0-10)
[2021-12-21 14:58] LABS: HEMOGLOBIN 8.6 gm/dl (12.3-15.3); RED BLOOD COUNT 3.42 M/UL (4.00-5.10); WHITE BLOOD COUNT 4.2 K/UL (4.5-11.0)
[2021-12-21 15:24] LABS: BUN/CREATININE RATIO 18 (0-10)
[2021-12-22 04:27] LABS: HEMOGLOBIN 9.1 gm/dl (12.3-15.3); RED BLOOD COUNT 3.64 M/UL (4.00-5.10); WHITE BLOOD COUNT 3.9 K/UL (4.5-11.0)
[2021-12-22 04:30] LABS: BUN/CREATININE RATIO 18 (0-10)
--- NOTE | 2021-12-23 00:13 | NUR ---
Patient with 800+ on bladder scanner, unable to void, physician notiifed order for FC, placed a #16f hansen per sterile technique with large amount of clear yellow urine noted immediately to gravity drain, secured to right thigh, eulalio procedure fair.
[2021-12-23 04:01] LABS: RED BLOOD COUNT 3.54 M/UL (4.00-5.10); WHITE BLOOD COUNT 3.8 K/UL (4.5-11.0)
[2021-12-23 04:05] LABS: BUN/CREATININE RATIO 15 (0-10)
[2021-12-24 06:22] LABS: HEMOGLOBIN 9.2 gm/dl (12.3-15.3); RED BLOOD COUNT 3.63 M/UL (4.00-5.10); WHITE BLOOD COUNT 3.9 K/UL (4.5-11.0)
[2021-12-24 06:59] LABS: BUN/CREATININE RATIO 16 (0-10)
--- NOTE | 2021-12-25 17:22 | NUR ---
AFTER RETURNING FROM HAVING AN EGD AND NEW PEG PLACED PT VOMITED ALL FLUIDS GIVEN THROUGH HER G TUBE, SHE SOUNDED MORE CONGESTED IMMEDIATELY . DR PADILLA AWARE ORDERED TO LET PT REST A BIT AND HOLD FEEDS AND OTHER MEDS AT THIS TIME
--- NOTE | 2021-12-26 11:26 | NUR ---
PT PULLED OXYGEN OUT OF NOSE. PT O2 SAT DROPPED TO 78%. PUT NASAL CANNULA BACK ON PT, O2 CAME UP TO 92%.
[2021-12-26 12:52] LABS: HEMOGLOBIN 9.9 gm/dl (12.3-15.3); RED BLOOD COUNT 3.86 M/UL (4.00-5.10); WHITE BLOOD COUNT 4.7 K/UL (4.5-11.0)
[2021-12-26 13:00] LABS: BUN/CREATININE RATIO 10 (0-10)
--- NOTE | 2021-12-28 22:33 | NUR ---
APPROX 2105 WHEN PREPARING GTUBE MEDICATIONS AT THE PT SINK, WHILE TRYING TO DRAW UP MEDICATIONS INTO SYRINGE, ACCIDENTLY KNOCK THE CYLINDER IN WHICH MEDICATIONS AND WATER WERE IN IN THE SINK AREA. RAN WATER DOWN THE SINK TO WASH THE MEDS ON DOWN THE SINK. WITNESS WITH ANOTHER RN AND DISPOSE OF HALFED MEDICATIONS.
[2021-12-30 06:39] LABS: HEMOGLOBIN 10.7 gm/dl (12.3-15.3); RED BLOOD COUNT 4.22 M/UL (4.00-5.10)
[2021-12-30 07:06] LABS: BUN/CREATININE RATIO 13 (0-10)
[2021-12-31 06:26] LABS: HEMOGLOBIN 10.5 gm/dl (12.3-15.3); RED BLOOD COUNT 4.18 M/UL (4.00-5.10); WHITE BLOOD COUNT 4.4 K/UL (4.5-11.0)
[2021-12-31 06:54] LABS: BUN/CREATININE RATIO 19 (0-10)
[2022-01-01 06:53] LABS: HEMOGLOBIN 10.2 gm/dl (12.3-15.3); RED BLOOD COUNT 4.1 M/UL (4.00-5.10); WHITE BLOOD COUNT 4.5 K/UL (4.5-11.0)
[2022-01-01 07:29] LABS: BUN/CREATININE RATIO 20 (0-10)
[2022-01-02 06:17] LABS: HEMOGLOBIN 9.7 gm/dl (12.3-15.3); RED BLOOD COUNT 3.87 M/UL (4.00-5.10); WHITE BLOOD COUNT 4.5 K/UL (4.5-11.0)
[2022-01-02 06:30] LABS: BUN/CREATININE RATIO 23 (0-10)
--- NOTE | 2022-01-02 18:08 | NUR ---
PT HAS ONLY HAS 100 OUT IN HER PLAZA CATHETER, DR HIGHTOWER CALLED WITH NO RETURN CALL AT THIS TIME. REQUESTED TO WAIT FOR PLAZA D/C UNTIL WE HEAR FROM THE MD. SHE DENIES NEEDS OR C/O AT THIS TIME. SHE HAS HER CALL GONZALEZ AND PHONE IN REACH AND HER IS AT HER BEDSIDE.
[2022-01-03 06:41] LABS: HEMOGLOBIN 9.5 gm/dl (12.3-15.3); RED BLOOD COUNT 3.8 M/UL (4.00-5.10); WHITE BLOOD COUNT 4.8 K/UL (4.5-11.0)
[2022-01-03 07:13] LABS: BUN/CREATININE RATIO 27 (0-10)
[2022-01-04 03:35] LABS: BUN/CREATININE RATIO 36 (0-10)
[2022-01-04 03:45] LABS: RED BLOOD COUNT 3.59 M/UL (4.00-5.10); WHITE BLOOD COUNT 3.7 K/UL (4.5-11.0)
[2022-01-05 05:17] LABS: HEMOGLOBIN 9.5 gm/dl (12.3-15.3); RED BLOOD COUNT 3.82 M/UL (4.00-5.10); WHITE BLOOD COUNT 4.2 K/UL (4.5-11.0)
[2022-01-05 06:59] LABS: BUN/CREATININE RATIO 23 (0-10)
[2022-01-06 07:30] LABS: BUN/CREATININE RATIO 18 (0-10)
[2022-01-06 08:04] LABS: HEMOGLOBIN 9.6 gm/dl (12.3-15.3); RED BLOOD COUNT 3.82 M/UL (4.00-5.10); WHITE BLOOD COUNT 3.8 K/UL (4.5-11.0)
--- NOTE | 2022-01-10 13:59 | NUR ---
PT UP TO CHAIR X2 ASIST
--- NOTE | 2022-01-10 16:17 | NUR ---
PATIENT IS NEW TO ME, I REVIEWED PREVIOUS ASSESSMENT AND AGREE WITH DOCUMENTED ASSESSMENT.
[2022-01-11 08:18] LABS: BUN/CREATININE RATIO 35 (0-10)
[2022-01-11 08:48] LABS: HEMOGLOBIN 9.7 gm/dl (12.3-15.3); RED BLOOD COUNT 3.89 M/UL (4.00-5.10); WHITE BLOOD COUNT 3.9 K/UL (4.5-11.0)
[2022-01-13 06:56] LABS: HEMOGLOBIN 9.9 gm/dl (12.3-15.3); RED BLOOD COUNT 4.03 M/UL (4.00-5.10)
[2022-01-13 07:02] LABS: WHITE BLOOD COUNT 5.8 K/UL (4.5-11.0)
[2022-01-13 07:31] LABS: BUN/CREATININE RATIO 41 (0-10)
[2022-01-14 06:08] LABS: HEMOGLOBIN 10.1 gm/dl (12.3-15.3); RED BLOOD COUNT 4.06 M/UL (4.00-5.10)
[2022-01-14 06:18] LABS: WHITE BLOOD COUNT 4.1 K/UL (4.5-11.0)
[2022-01-14 06:27] LABS: BUN/CREATININE RATIO 45 (0-10)
[2022-01-15] MEDS ORDERED: GABAPENTIN800 MG PO (17:39)
== END 2022-01-15 18:30 | disposition home or self-care (01) | DRG 177 ==
LOC: ER1 21:49 → CDU 12-19 03:19 → MED SURG 4 12-19 04:20 → CDU 12-19 04:20 → MED SURG 4 12-19 11:33 → M/S 01-13 17:05 → MED SURG 4 01-13 18:11
PROVIDERS: Emergency Medicine; Internal Medicine; Surgery; ADMIT Internal Medicine
PROC: 0DH63UZ Insertion of Feeding Device into Stomach, Percutaneous Approach (ICD-10-PCS; principal; 2021-12-25 11:40)
PROC: 5A09357 Assistance with Respiratory Ventilation, Less than 24 Consecutive Hours, Continuous Positive Airway Pressure (ICD-10-PCS; 2022-01-02)
PROC: 5A09357 Assistance with Respiratory Ventilation, Less than 24 Consecutive Hours, Continuous Positive Airway Pressure (ICD-10-PCS; 2022-01-03)
PROC: 5A09357 Assistance with Respiratory Ventilation, Less than 24 Consecutive Hours, Continuous Positive Airway Pressure (ICD-10-PCS; 2022-01-03)
DX: J69.0 Pneumonitis due to inhalation of food and vomit (principal); J96.21 Acute and chronic respiratory failure with hypoxia; Z20.822 Contact with and (suspected) exposure to COVID-19; J96.22 Acute and chronic respiratory failure with hypercapnia; G93.41 Metabolic encephalopathy; K94.23 Gastrostomy malfunction; E87.3 Alkalosis; H54.8 Legal blindness, as defined in USA; G40.909 Epilepsy, unspecified, not intractable, without status epilepticus; R13.10 Dysphagia, unspecified; J38.00 Paralysis of vocal cords and larynx, unspecified; I95.2 Hypotension due to drugs; T42.75XA Adverse effect of unspecified antiepileptic and sedative-hypnotic drugs, initial encounter; F41.9 Anxiety disorder, unspecified; E87.6 Hypokalemia; E83.42 Hypomagnesemia; R21 Rash and other nonspecific skin eruption; R33.9 Retention of urine, unspecified; F32.A Depression, unspecified; D64.9 Anemia, unspecified; Y83.8 Other surgical procedures as the cause of abnormal reaction of the patient, or of later complication, without mention of misadventure at the time of the procedure; Z85.89 Personal history of malignant neoplasm of other organs and systems; Z87.01 Personal history of pneumonia (recurrent); Z99.81 Dependence on supplemental oxygen; Z88.1 Allergy status to other antibiotic agents; Z88.0 Allergy status to penicillin; Z88.8 Allergy status to other drugs, medicaments and biological substances; Z82.49 Family history of ischemic heart disease and other diseases of the circulatory system; Z98.2 Presence of cerebrospinal fluid drainage device
CPT/HCPCS: 36415; 36600; 70450; 71045; 74018; 74230; 80048; 80053; 82607; 82728; 82746; 82803; 82962; 83540; 83550; 83605; 83735; 84100; 84439; 84443; 85025; 85027; 92611-GN; 93005; 94640; 94660; 94667; 94668; 94760; 96361; 96365; 96375; 97110-GP-CQ; 97161; 97166; 97530; 99285; J0696; J1170; J1200; J1335; J1650; J1885; J2185; J2370; J2405; J2550; J2704; J3475; J7030; J7040; U0002